=== PATIENT | female | born 1990 | race Caucasian/White ===

== ENCOUNTER 2023-09-22 08:12 | Emergency (ER) | payer SELFPAY ==
[~2023-09-22] VITALS: Ht 165.1 cm; Wt 109.0 kg
[2023-09-22 08:14] VITALS: O2SAT 100
[2023-09-22 08:37] LABS: BASOPHILS % 0.2 % (0.0-2.0); EOSINOPHILS % 0.3 % (0.0-5.0); HEMATOCRIT. 44.1 % (36.0-48.0); HEMOGLOBIN. 14.2 g/dL (12.0-16.0); LYMPHOCYTES % 12.2 % (20.0-50.0); MEAN CORPUSCULAR HEMOGLOBIN 28.1 pg (28.0-32.0); MEAN CORPUSCULAR HGB CONC 32.2 g/dL (31.0-37.0); MEAN CORPUSCULAR VOLUME 87.4 fL (81.0-99.0); MONOCYTES % 2.5 % (2.0-8.0); NEUTROPHILS % 84.8 % (40.0-76.0); PLATELET 410 x1000/uL (130-400); RED BLOOD CELL COUNT 5.05 mill/uL (4.2-5.4); RED CELL DISTRIBUTION WIDTH 14.7 % (11.6-14.6); WHITE BLOOD COUNT 15.4 x1000/uL (4.5-11.0)
[2023-09-22 08:42] LABS: CHLORIDE 103 mEq/L (98-107); SODIUM 135 mEq/L (136-145)
[2023-09-22 08:43] LABS: CALCIUM 10.2 mg/dL (8.7-10.4); CARBON DIOXIDE 25 mEq/L (21-32)
[2023-09-22 08:48] LABS: CREATININE 0.8 mg/dL (0.6-1.0); GLUCOSE 137 mg/dL (70-105); UREA NITROGEN BLOOD 15 mg/dL (9-23)
[2023-09-22 09:05] LABS: HCG SCREEN NEGATIVE
[2023-09-22 09:05] LABS: CLARITY URINE CLOUDY (CLEAR); COLOR URINE YELLOW (YELLOW); GLUCOSE URINE NEGATIVE (NEGATIVE); KETONES URINE NEGATIVE (NEGATIVE); LEUKOCYTE ESTERASE URINE TRACE (NEGATIVE); NITRITE URINE NEGATIVE (NEGATIVE); OCCULT BLOOD URINE 2+ (NEGATIVE); PH URINE 5.5 (4.5-8.0); PROTEIN URINE 1+ (NEGATIVE); SPECIFIC GRAVITY URINE 1.027 (1.005-1.030); UROBILINOGEN URINE 0.2 E.U./dL (0.2-1.0)
[2023-09-22] MEDS: DICYCLOMINE HCL 10MG/ML 2ML VIAL IM ONE (09:15)
[2023-09-22] MEDS: ONDANSETRON 4MG ODT PO ONE (09:16)
[2023-09-22 09:19] LABS: AMORPHOUS SEDIMENT URINE 1+ /lpf; BACTERIA URINE TRACE; RBC URINE 0-2 /hpf (0-2); SQUAMOUS EPITHELIAL CELL URINE 1+ /lpf (RARE/1+); YEAST URINE NONE SEEN
[2023-09-22] MEDS ORDERED: DICY20TA2 MT (10:18)
[2023-09-22] MEDS ORDERED: ONDA4TAB11 PO (10:18)
[2023-09-22 10:55] VITALS: BP 139/75; PULSE 102; RESP 18; TEMP 97.9
== END 2023-09-22 10:58 | disposition home or self-care (01) ==
LOC: ER 08:12
DX: R10.84 Generalized abdominal pain (principal); R19.7 Diarrhea, unspecified; R11.2 Nausea with vomiting, unspecified
CPT/HCPCS: 99285; 74176; 80048; 81003; 81025; 84703; 85025; 36415; 96372; Q0162; J0500

== ENCOUNTER 2024-07-06 15:05 | Emergency (ER) | payer SELFPAY ==
[~2024-07-06] VITALS: Ht 162.6 cm; Wt 121.0 kg
[~2024-07-06 15:05] MED LIST: DICY20TA2 MT; ONDA-239 PO
[2024-07-06 15:13] VITALS: BP 110/77; PULSE 115; RESP 18; TEMP 36.9; O2SAT 98
== END 2024-07-06 16:50 | disposition left against medical advice (07) ==
LOC: ER 15:05
DX: R51.9 Headache, unspecified (principal); Z53.21 Procedure and treatment not carried out due to patient leaving prior to being seen by health care provider